=== PATIENT | male | born 1980 | race African-American/Black ===

== ENCOUNTER 2021-03-21 10:19 | Emergency (ER) | payer BC, SELFPAY ==
[2021-03-21] VITALS (60 sets, daily range): BP systolic 141–219; BP diastolic 98–155; PULSE 89–112; RESP 13–45; TEMP 36.7–37.1; O2SAT 78–100
--- NOTE | ~2021-03-21 | XR_ITS ---
EXAMINATION: XR chest 2V DATE: 03/21/2021 10:54 INDICATION: Congestive heart failure. TECHNIQUE: Frontal and lateral views of the chest were obtained. COMPARISON: None. FINDINGS: There is a diffuse interstitial pattern in the lungs, consistent with mild pulmonary edema. No pleural effusion or pneumothorax. Cardiomegaly is noted. IMPRESSION: 1. Mild pulmonary edema. 2. Cardiomegaly. Reviewed, dictated and finalized at location A.
--- NOTE | 2021-03-21 10:43 | ECG_ITS ---
Measurements Intervals [place]kins Rate: 99 P: 55 MS: 145 QRS: -4 QRSD: 97 T: 76 QT: 387 QTc: 498 Interpretive Statements SINUS RHYTHM POSSIBLE RIGHT ATRIAL ENLARGEMENT LEFT ATRIAL ENLARGEMENT LOW QRS VOLTAGE IN PRECORDIAL LEADS POSSIBLE LEFT VENTRICULAR HYPERTROPHY DELAYED PRECORDIAL R/S TRANSITION BORDERLINE ST-T WAVE ABNORMALITY- INF/HIGH LAT LEADS BORDERLINE ECG Electronically Signed On 03-21-2021 12:47:52 CDT by Jonnie Ramsey D.O.
[2021-03-21 10:57] LABS: Basophils Percent Auto 0.4 % (0.2-1.2); Eosinophils Absolute Auto 0.1 K/mm3 (0-0.3); Eosinophils Percent Auto 0.7 % (0-4.4); Hematocrit 45.4 % (42.0-52.0); Hemoglobin 12.8 g/dL (14.0-18.0); Lymphocytes Percent Auto 29.3 % (18.3-44.2); Mean Corpuscular HGB Conc 28.2 g/dl (32-36); Mean Corpuscular Hemoglobin 22.7 pg (26-34); Mean Corpuscular Volume 80.4 fl (80-100); Mean Platelet Volume 10.4 fl (7.4-10.4); Monocytes Absolute Auto 0.7 K/mm3 (0.1-0.6); Monocytes Percent Auto 9.8 % (2.6-8.5); Neutrophils Absolute Auto 4.1 K/mm3 (1.3-6.7); Neutrophils Percent Auto 59.8 % (45.5-73.1); Platelet Count Result 188 k/mm3 (150-375); Red Blood Count 5.65 M/mm3 (4.6-6.20); Red Cell Distribution Width 15.9 % (11.5-14.5); White Blood Count 6.8 K/mm3 (4.5-10.0)
[2021-03-21 11:08] LABS: INR 1.1; Prothrombin Time 13.9 Seconds (11.1-14.7)
[2021-03-21 11:10] LABS: Partial Thromboplastin Time 27.7 SECONDS (22.3-36.8)
[2021-03-21 11:19] LABS: Anion Gap 5 mmol/L (8-16); Blood Urea Nitrogen 12 mg/dL (9-20); Calcium 8.5 mg/dL (8.4-10.2); Carbon Dioxide 27 mmol/L (22-30); Chloride 109 mmol/L (98-107); Estimated CRCL calculation 145 ml/min; Estimated Glomerular Filt Rate > 60; Glucose 88 mg/dL (75-110); Sodium 141 mmol/L (137-145)
[2021-03-21 11:36] LABS: NT Pro B Type Natriuretic Pept 1620 pg/mL (5-100)
[2021-03-21] MEDS: hydrALAZINE HCL 20 MG/ML VIAL 10 MG IV PUSH (11:47)
[2021-03-21] MEDS: FUROSEMIDE INJ 40 MG/4 ML VIAL IV PUSH (11:47)
--- NOTE | 2021-03-21 12:17 | ED.GENADULT ---
HPI - General Adult General Chief complaint: Extremity Problem,Nontraumatic Stated complaint: BILATERAL FEET SWELLING Time Seen by Provider: 03/21/21 10:26 Source: patient Mode of arrival: ambulatory Limitations: no limitations History of Present Illness HPI narrative: Patient is a 40-year-old male who presents complaining of swelling to bilateral lower extremities x4 days. He reports weeping to the lower legs starting yesterday. He reports a history of HTN and CHF. 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 Patient is a poor historian and reports he takes all of his medications only at night as they make me sleepy and nauseous . Patient initially denied taking diuretics but medication report states patient takes spironolactone and furosemide. Patient is non compliant with medications given twice a day. Patient denies chest pain or shortness of breath. Patient is hypertensive in ED. MD complaint: Edema bilateral lower extremities Related Data Home Medications Medication Instructions Recorded Confirmed carvedilol 03/21/21 03/21/21 furosemide 03/21/21 indomethacin 03/21/21 losartan 03/21/21 spironolactone 03/21/21 Allergies Allergy/AdvReac Type Severity Reaction Status Date / Time No Known Allergies Allergy Other Uncoded 03/21/21 11:25 Review of Systems Review of Systems: Narrative: CONSTITUTIONAL: Denies fever, chills, or sweats. EYES: Denies visual changes, redness, or discharge. ENT: Denies rhinorrhea, congestion, sore throat, or otalgia. CARDIOVASCULAR: Denies chest pain, palpitations, or edema. RESPIRATORY: Denies cough or dyspnea. GASTROINTESTINAL: Denies abdominal pain, nausea, vomiting, or diarrhea. GENITOURINARY: Denies dysuria or hematuria. SKIN: Denies rash or itching. MUSCULOSKELETAL: Reports swelling to bilateral lower extremities NEUROLOGIC: Denies headache, numbness, dizziness, or weakness. PSYCHIATRIC: Denies anxiety or depression. [facility] Past Medical History Medical History Diabetes Gout HTN (hypertension) Hypercholesterolemia Surgical History Surgical History History of orthopedic surgery Social History Social History (Updated 03/21/21 @ 12:26 by SABA Mc) Smoking status: Current every day smoker Tobacco type: cigarettes Alcohol intake: current Alcohol use details: Occasional Substance use: never Living arrangements: with family Gender identity (if verbalized by the patient): Male Comments At the time of signature, I have reviewed and agree with nursing past medical, surgical, social, and family history unless otherwise noted. Please see nursing chart for further information. There is no relevant family history pertinent to the presenting complaint. Exam Narrative: Exam Narrative: GENERAL: Well-appearing, well-nourished, and in no acute distress. HEAD: Normocephalic, atraumatic. EYES: EOMI. No redness or drainage. Conjunctiva are normal. ENT: Mucous membranes pink and moist. Nares clear. No rhinorrhea. TMs normal bilaterally. Throat normal. Uvula midline. NECK: AROM. Supple. No lymphadenopathy. CHEST: No respiratory distress. Clear to auscultation. HEART: Regular rate and rhythm. No murmur appreciated. Normal peripheral pulses. GI: Soft, nontender without rebound, or guarding. No distention. Bowel sounds normal in all quadrants. MUSCULOSKELETAL: No bony tenderness. EXTREMITIES: Normal range of motion. Edema to bilateral lower extremities. Weeping noted to bilateral lower extremities SKIN: Warm, dry, no rash. NEURO: No focal deficits. Alert and oriented x3. Gait steady. PSYCH: Normal affect. No signs of depression or anxiety. Course Course Emergency Course: Patient would like to be transferred to [facility] which is where his casing cooker is located. Spoke with Dr. Gunter, cardiology at [facility]
[2021-03-21] MEDS: lisinopriL 10 MG TABLET 20 MG PO (12:46)
[2021-03-21] MEDS: hydroCHLOROthiazide 25 MG TABLET PO (12:46)
[2021-03-21] MEDS: ASPIRIN 81 MG CHEWABLE TABLET 324 MG PO (12:47)
[2021-03-21 14:03] LABS: Troponin I 0.047 ng/mL (0.000-0.034)
--- NOTE | 2021-03-21 15:29 | PC.NURSE ---
pt is sleeping and pt desatting into the 80s. This RN asked pt if he has sleep apnea, he states that he is suppose to have a sleep study down. 2L O2 placed on pt while he sleeps
[2021-03-21 17:25] LABS: Troponin I 0.046 ng/mL (0.000-0.034)
--- NOTE | 2021-03-21 18:19 | PC.NURSE ---
made contact with [facility] to transfer pt to [facility]. company accepted with [facility]a 2000
--- NOTE | 2021-03-21 19:49 | PC.NURSE ---
ems called and stated that the transport would not be here until [id number]
--- NOTE | 2021-03-21 21:27 | PC.NURSE ---
ems report transport will be at [id number]
[2021-03-21] MEDS: carvediloL 25 MG TABLET PO (22:10)
[2021-03-21] MEDS: cloNIDine HCL 0.1 MG TABLET PO (22:11)
--- NOTE | 2021-03-21 22:20 | PC.NURSE ---
[facility] CALLED W/JUAN [facility] ... APPROX 6109
== END 2021-03-21 23:32 | disposition short-term general hospital (02) ==
PROVIDERS: Emergency Provider Nurse Practitioner; PCP Nurse Practitioner
DX: I16.0 Hypertensive urgency (principal); I50.9 Heart failure, unspecified; I11.0 Hypertensive heart disease with heart failure; E11.9 Type 2 diabetes mellitus without complications; M10.9 Gout, unspecified; E78.00 Pure hypercholesterolemia, unspecified; F17.210 Nicotine dependence, cigarettes, uncomplicated; I51.7 Cardiomegaly; R94.31 Abnormal electrocardiogram [ECG] [EKG]
CPT/HCPCS: 36415; 71046; 80048; 83880; 84484; 85025; 85610; 85730; 93005; 96374; 96375; 99285; A9270; J0360; J1940